=== PATIENT | male | born 2000 | race Caucasian/White ===

== ENCOUNTER 2021-05-04 12:46 | Emergency (ER) | payer BC, SELFPAY ==
[2021-05-04 12:55] VITALS: BP 136/66; PULSE 89; RESP 18; TEMP 37.1; O2SAT 100
--- NOTE | 2021-05-04 13:55 | ED.URI ---
HPI - URI/Sore Throat General Chief Complaint: Upper Respiratory Infection Stated Complaint: Fever,Body Aches,sore Throat Source: patient and RN notes reviewed Limitations: no limitations History of Present Illness HPI Narrative: The vaccinated patient, a ex-smoker/nondrinking college student, presents with rash and scratchy throat. Patient states he is on amoxicillin for pharyngitis after being seen earlier in the week and having noncontributory strep screen and Covid antigen test. No comments he has persistent scratchy throat, diarrhea x3, lightheadedness occasional shortness of breath with cough only, and new pink color, mostly flat rash on his trunk and proximal extremities. No fever, earache, cough, vomiting; no CP, loss of taste/smell, SOB now; he desires higher level testing/lab work. So advised to go to hospital if not improved Related Data Home Medications Medication Instructions Recorded Confirmed Prilosec 20 mg PO DAILY 05/04/21 05/04/21 Zoloft 20 mg PO DAILY 05/04/21 05/04/21 Allergies Allergy/AdvReac Type Severity Reaction Status Date / Time No Known Allergies Allergy Verified 05/04/21 13:06 Review of Systems Review of Systems: General/Constitutional: No weight loss,fever Eyes: N0: Redness,discharge Ears/Nose/Throat: No: Epistaxis,ear discharge Respiratory: Denies: Hemoptysis Gastrointestinal: No Vomiting, Bleeding-rectal Skin: No Lumps, REPORTS eruption Neurologic: No Focal Weakness,Sz Hematologic: Denies: Petechiae/Purpura Psychiatric: No: Suicida ideationl All Other Systems: Reviewed and Negative PMFSH Comments At time of signature, agree with nursing past medical, surgical, social and family history. There is no relevant family history pertinent to the presenting complaint Exam Narrative: General Appearance: Well appearing, Well nourished EYE: PERRLA, Conjunctiva clear Ears: Auditory canal normal, TM normal Nose: Rhinorrhea, Mucousal erythema Mouth/Throat: MM moist, Uvula midline, Pharyngeal erythema Neck: Supple, No adenopathy Respiratory: No respiratory distress, Breath sounds equal, Clear to auscultation Cardiovascular: RRR, No JVD Musculoskeletal: Non tender, Normal strength Skin: Warm, Dry; pink, blanching, maculopapular eruption on trunk Neurological: A&O x3, CN II-XII intact Psychiatric: Normal mood, Normal affect Course Vital Signs Vital signs: Vital Signs Temperature 98.7 F 05/04/21 12:55 Pulse Rate 89 05/04/21 12:55 Respiratory Rate 18 05/04/21 12:55 Blood Pressure 136/66 05/04/21 12:55 Pulse Oximetry 100 05/04/21 12:55 Temperature 98.7 F 05/04/21 12:55 Pulse Rate 89 05/04/21 12:55 Respiratory Rate 18 05/04/21 12:55 Blood Pressure 136/66 05/04/21 12:55 Pulse Oximetry 100 05/04/21 12:55 MDM - URI/Sore Throat Lab Data Labs: [place] Screen Negative (Reference Range: Negative) Discharge Plan Discharge Clinical Impression: Rash, History of pharyngitis Patient Disposition: Home, Self-Care Condition: Stable Instructions: Pharyngitis (ED) Additional Instructions: You may continue your prior antibiotics; see PMD/doctor in follow-up Prescriptions: New prednisone 20 mg tablet 60 mg PO DAILY Qty: 9 RF: 0 lidocaine HCl [Lidocaine Viscous] 2 % solution 5 ml MUCOUS MEM QID PRN (Reason: pain) Qty: 100 RF: 0 No Action Zoloft 20 mg PO DAILY RF: 0 Prilosec 20 mg PO DAILY RF: 0 Follow-up/Referrals: PHYSICIAN NOT ON STAFF,NONSTAFF [Primary Care Provider] - Stand Alone Forms: Work/School Release IP
[2021-05-05 18:57] LABS: SARS-CoV-2 RNA PCR Negative
== END 2021-05-04 14:50 | disposition home or self-care (01) ==
PROVIDERS: Emergency Provider Emergency Medicine
DX: R21 Rash and other nonspecific skin eruption (principal); J02.9 Acute pharyngitis, unspecified; Z20.822 Contact with and (suspected) exposure to COVID-19; K21.9 Gastro-esophageal reflux disease without esophagitis
CPT/HCPCS: 36416; 86308; 99203; C9803; G0463; U0003; U0005